=== PATIENT | female | born 2000 | race African-American/Black ===

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

== ENCOUNTER 2021-01-24 11:52 | Emergency (ER) | payer OTHER ==
[2021-01-24 12:07] VITALS: BP 111/73; PULSE 95; TEMP 98.5; BMI 20.5
[2021-01-24 13:49] LABS: EPI CELLS >36 /uL (0-25.1); HCG,QUALITATIVE URINE Negative; HYALINE CASTS 3 /uL (0-3.1); PH,URINE 6.5 (5.0-8.0); URINE APPEARANCE CLEAR; URINE BACTERIA 502 /uL (0-1359); URINE BILIRUBIN NEGATIVE (NEGATIVE); URINE COLOR YELLOW; URINE GLUCOSE (UA) NEGATIVE (NEGATIVE); URINE KETONE TRACE (NEGATIVE); URINE LEUK ESTERASE TRACE (NEGATIVE); URINE NITRITE NEGATIVE (NEGATIVE); URINE PROTEIN TRACE (NEGATIVE); URINE RBC 3 /uL (0-23.9); URINE WBC 25 /uL (0-25.8)
== END 2021-01-24 14:01 | disposition home or self-care (01) ==
LOC: JERFT 11:52
DX: R30.0 Dysuria (principal)
CPT/HCPCS: 36415; 81003; 84703; 87077; 87086; 87491; 87591; 99283-25

== ENCOUNTER 2021-03-16 21:46 | Emergency (ER) | payer OTHER ==
[2021-03-16 21:53] VITALS: BP 110/64; PULSE 116; TEMP 98.7; BMI 20.5
[2021-03-16] MEDS ORDERED: diphenhydrAMINE HCL 25 MG CAPSULE (FP) PO ONE ×2 (22:51→23:09)
[2021-03-16 23:26] LABS: HEMATOCRIT 31.9 % (32.4-45.2); HEMOGLOBIN 10.2 GM/dL (10.7-15.3); MCH 24.1 pg (25.7-33.7); MEAN CELL VOLUME 75.4 fl (80-96); MEAN PLT VOLUME 8.3 fl (7.5-11.1); PLATELET COUNT 278 10^3/uL (134-434); RBC 4.23 M/mm3 (3.60-5.2); RDW 16.8 % (11.6-15.6); WHITE BLOOD COUNT 4.6 K/mm3 (4.0-10.0)
[2021-03-16 23:36] LABS: EPI CELLS >36 /uL (0-25.1); HCG,QUALITATIVE URINE Negative; HYALINE CASTS 45 /uL (0-3.1); URINE APPEARANCE CLOUDY; URINE BACTERIA 1041 /uL (0-1359); URINE BILIRUBIN NEGATIVE (NEGATIVE); URINE COLOR DK YELLOW; URINE GLUCOSE (UA) NEGATIVE (NEGATIVE); URINE KETONE 1+ (NEGATIVE); URINE LEUK ESTERASE TRACE (NEGATIVE); URINE NITRITE NEGATIVE (NEGATIVE); URINE PROTEIN 2+ (NEGATIVE); URINE RBC 3 /uL (0-23.9); URINE WBC 95 /uL (0-25.8)
[2021-03-16 23:45] LABS: CALCIUM 8.9 mg/dL (8.5-10.1)
[2021-03-16 23:46] LABS: ALBUMIN 4.3 g/dl (3.4-5.0); BLOOD UREA NITROGEN 10.8 mg/dL (7-18)
[2021-03-16 23:49] LABS: CREATININE 0.8 mg/dL (0.55-1.3)
[2021-03-16 23:51] LABS: BILIRUBIN,TOTAL 0.7 mg/dL (0.2-1); TOT PROT 7.6 g/dl (6.4-8.2)
[2021-03-17] MEDS ORDERED: CEPHALEXIN MONOHYDRATE 500 MG CAPSULE (UD) PO ONE (00:22)
== END 2021-03-17 00:55 | disposition home or self-care (01) ==
LOC: JER 21:46
DX: R21 Rash and other nonspecific skin eruption (principal)
CPT/HCPCS: 36415; 80053; 81003; 84703; 85027; 99283-25

== ENCOUNTER 2021-03-31 11:36 | Emergency (ER) | payer OTHER ==
[2021-03-31 11:48] VITALS: BP 112/67; PULSE 90; TEMP 98.9; BMI 20.5
[2021-03-31] MEDS ORDERED: DEXAMETHASONE SOD PHOSPHATE 10 MG/1 ML VIAL IM ONE (12:21)
[2021-03-31] MEDS ORDERED: FAMOTIDINE 20 MG TABLET PO ONE (12:21)
[2021-03-31] MEDS ORDERED: FAMOTIDINE 20 MG TABLET ONE (12:24)
[2021-03-31] MEDS ORDERED: DEXAMETHASONE SOD PHOSPHATE 10 MG/1 ML VIAL ONE (12:24)
== END 2021-03-31 13:15 | disposition home or self-care (01) ==
LOC: JERFT 11:36
PROC: 3E033NZ Introduction of Analgesics, Hypnotics, Sedatives into Peripheral Vein, Percutaneous Approach (ICD-10-PCS; principal; 2021-03-31)
DX: L23.9 Allergic contact dermatitis, unspecified cause (principal)
CPT/HCPCS: 99283-25; J1100

== ENCOUNTER 2021-05-21 12:13 | Emergency (ER) | payer OTHER ==
[2021-05-21 12:35] VITALS: BP 101/60; PULSE 122; TEMP 99.8; BMI 19.7
[2021-05-21] MEDS ORDERED: IBUPROFEN 600 MG TABLET (FP) PO ONE ×2 (14:03→14:18)
[2021-05-25 12:06] LABS: SARS-CoV-2 NAA Detected (Not Detected)
== END 2021-05-21 14:42 | disposition home or self-care (01) ==
LOC: JER 12:13
DX: M79.10 Myalgia, unspecified site (principal); R51.9 Headache, unspecified; R10.9 Unspecified abdominal pain
CPT/HCPCS: 87804; 99283-25; C9803-CS; U0003; U0005

== ENCOUNTER 2022-04-26 05:08 | Emergency (ER) | payer OTHER ==
[2022-04-26 05:19] VITALS: BP 114/72; PULSE 92; RESP 18; TEMP 99; BMI 20.7
[2022-04-26] MEDS ORDERED: ACETAMINOPHEN 325 MG TABLET (FP) PO ONE (06:28)
[2022-04-26] MEDS ORDERED: ACETAMINOPHEN 325 MG TABLET (FP) ONE (06:32)
[2022-04-26] MEDS ORDERED: METOCLOPRAMIDE HCL INJECTION 10 MG/2 ML VIAL IVPUSH ONE (06:38)
[2022-04-26] MEDS ORDERED: METOCLOPRAMIDE HCL INJECTION 10 MG/2 ML VIAL IM ONE (06:39)
[2022-04-26] MEDS ORDERED: KETOROLAC TROMETHAMINE 15 MG/ML VIAL IM ONE (06:39)
[2022-04-26] MEDS ORDERED: METOCLOPRAMIDE HCL INJECTION 10 MG/2 ML VIAL ONE (06:56)
[2022-04-26] MEDS ORDERED: KETOROLAC TROMETHAMINE 15 MG/ML VIAL ONE (06:56)
== END 2022-04-26 07:00 | disposition left against medical advice (07) ==
LOC: JER 05:08
PROC: 3E0233Z Introduction of Anti-inflammatory into Muscle, Percutaneous Approach (ICD-10-PCS; principal; 2022-04-26)
PROC: 3E033GC Introduction of Other Therapeutic Substance into Peripheral Vein, Percutaneous Approach (ICD-10-PCS; 2022-04-26)
PROC: 3E023GC Introduction of Other Therapeutic Substance into Muscle, Percutaneous Approach (ICD-10-PCS; 2022-04-26)
DX: J09.X2 Influenza due to identified novel influenza A virus with other respiratory manifestations (principal); R51.9 Headache, unspecified
CPT/HCPCS: 0241U-QW; 99284-25

== ENCOUNTER 2022-07-13 15:46 | Emergency (ER) | payer OTHER ==
[2022-07-13 16:00] VITALS: BP 111/69; PULSE 98; RESP 16; TEMP 97.8
[2022-07-13 17:00] LABS: PH,URINE 5.5 (5.0-8.0); URINE APPEARANCE CLEAR; URINE BILIRUBIN NEGATIVE (NEGATIVE); URINE COLOR YELLOW; URINE GLUCOSE (UA) NEGATIVE (NEGATIVE); URINE KETONE NEGATIVE (NEGATIVE); URINE LEUK ESTERASE NEGATIVE (NEGATIVE); URINE NITRITE NEGATIVE (NEGATIVE); URINE PROTEIN TRACE (NEGATIVE); URINE UROBILINOGEN 0.2 mg/dL (0.2-1.0)
[2022-07-13 17:02] LABS: HCG,QUALITATIVE URINE Negative
[2022-07-13] MEDS ORDERED: AZITHROMYCIN 250 MG TABLET PO ONE (17:08)
[2022-07-13] MEDS ORDERED: AZITHROMYCIN 250 MG TABLET ONE (17:14)
[2022-07-13] MEDS ORDERED: cefTRIAXone SODIUM 1 GM VIAL ONE (17:17)
[2022-07-13] MEDS ORDERED: LIDOCAINE HCL/PF 1% SDV 5ML VIAL ONE (17:21)
== END 2022-07-13 17:36 | disposition home or self-care (01) ==
LOC: JERFT 15:46
DX: R35.0 Frequency of micturition (principal)
CPT/HCPCS: 36415; 81003; 82962; 84703; 87086; 87491; 87591; 87661; 99284-25

== ENCOUNTER 2023-05-01 21:15 | Emergency (ER) | payer OTHER ==
[2023-05-01] MEDS ORDERED: ACETAMINOPHEN 325 MG TABLET (FP) ONE (22:08)
[2023-05-01] MEDS ORDERED: ACETAMINOPHEN 325 MG TABLET (FP) PO ONE (22:15)
[2023-05-01] MEDS ORDERED: LACTATED RINGERS SOLUTION 1,000 ML IV ONE (22:20)
[2023-05-01 22:47] VITALS: RESP 20
[2023-05-01 23:52] VITALS: BP 108/56; PULSE 114; TEMP 99.2; BMI 26.7
[2023-05-02] MEDS ORDERED: diphenhydrAMINE HCL 25 MG CAPSULE (FP) PO ONE ×2 (00:30→00:35)
== END 2023-05-02 01:33 | disposition home or self-care (01) ==
LOC: JER 21:15 → JERFT 21:15 → JDEL 23:40 → JERFT 23:43 → EDSTATUS 05-02 01:33
PROC: 3E0337Z Introduction of Electrolytic and Water Balance Substance into Peripheral Vein, Percutaneous Approach (ICD-10-PCS; principal; 2023-05-01)
DX: O99.713 Diseases of the skin and subcutaneous tissue complicating pregnancy, third trimester (principal); L50.9 Urticaria, unspecified; O98.513 Other viral diseases complicating pregnancy, third trimester; U07.1 COVID-19; Z3A.32 32 weeks gestation of pregnancy
CPT/HCPCS: 0241U-QW; 59025; 99284-25